=== PATIENT | male | born 1955 ===

== ENCOUNTER 2017-12-07 06:22 | Emergency (ER) | payer OTHER ==
[2017-12-07 06:57] VITALS: BP 165/91; PULSE 68; RESP 16; TEMP 97.4; O2SAT 98
--- NOTE | 2017-12-07 07:51 | ED PDOC ---
HPI: General Adult Time Seen by Provider: 12/07/17 07:08 Chief Complaint (Nursing): ENT Problem Chief Complaint (Provider): Nose bleed History Per: Patient History/Exam Limitations: no limitations Onset/Duration Of Symptoms: Days (x3) Current Symptoms Are (Timing): Intermittent Episodes Additional Complaint(s): 62 year old male with no past medical history, presents to the emergency department complaining of nose bleed, intermittent for 3 days. Patient is usually able to hold pressure and stop blood flow. Upon arrival to ER, there is no active bleeding. Denies taking any blood thinners or other daily medications PMD: Dr. Arthur Paez Past Medical History Reviewed: Historical Data, Nursing Documentation, Vital Signs Vital Signs: Last Vital Signs Temp 97.4 F L 12/07/17 06:54 Pulse 68 12/07/17 06:54 Resp 16 12/07/17 06:54 BP 165/91 H 12/07/17 06:54 Pulse Ox 98 12/07/17 06:54 - Medical History PMH: No Chronic Diseases Denies: Chronic Kidney Disease - Surgical History Surgical History: No Surg Hx - Family History Family History: States: Unknown Family Hx - Social History Current smoker - smoking cessation education provided: No Alcohol: Social Drugs: Denies - Allergies Allergies/Adverse Reactions: Allergies Allergy/AdvReac Type Severity Reaction Status Date / Time No Known Allergies Allergy Verified 12/07/17 06:57 Review of Systems ROS Statement: Except As Marked, All Systems Reviewed And Found Negative Constitutional: Negative for: Fever ENT: Positive for: Other (nose bleed) Cardiovascular: Negative for: Light Headedness Neurological: Negative for: Dizziness Physical Exam - Reviewed Nursing Documentation Reviewed: Yes Vital Signs Reviewed: Yes - Physical Exam Appears: Positive for: Non-toxic, No Acute Distress Head Exam: Positive for: ATRAUMATIC, NORMAL INSPECTION, NORMOCEPHALIC Skin: Positive for: Normal Color, Warm, Dry Eye Exam: Positive for: EOMI, Normal appearance, PERRL ENT: Positive for: TM Is/Are (normal), Other (Minimal irritation to the right nasal septum, no active bleeding. No septal hematoma). Negative for: Pharyngeal Erythema Neck: Positive for: Normal, Painless ROM, Supple Cardiovascular/Chest: Positive for: Regular Rate, Rhythm. Negative for: Murmur Respiratory: Positive for: Normal Breath Sounds. Negative for: Accessory Muscle Use, Respiratory Distress Neurologic/Psych: Positive for: Alert, Oriented - ECG O2 Sat by Pulse Oximetry: 98 (RA) Pulse Ox Interpretation: Normal Medical Decision Making Medical Decision Making: Clinical Impression: Nose Bleed Plan: Patient is stable for discharge home. Advised to follow up with PMD for further evaluation. There is agreement to discharge plan. Return if symptoms persist or worsen. Scribe Attestation: Documented by Rea Fu, acting as a scribe for Deepa Fay MD Provider Scribe Attestation: All medical record entries made by the Scribe were at my direction and personally dictated by me. I have reviewed the chart and agree that the record accurately reflects my personal performance of the history, physical exam, medical decision making, and the department course for this patient. I have also personally directed, reviewed, and agree with the discharge instructions and disposition Disposition - Clinical Impression Clinical Impression: Epistaxis - Patient ED Disposition Is Patient to be Admitted: No Counseled Patient/Family Regarding: Diagnosis, Need For Followup - Disposition Disposition: Routine/Home Disposition Time: 07:25 Condition: STABLE Additional Instructions: FOLLOW-UP WITH PMD WITHIN 2 DAYS FOR REEVALUATION. Instructions: Nosebleed (ED) Forms: [employer] ([place]awk) Print Language: PERSIAN - POA Present On Arrival: None
== END 2017-12-07 07:45 | disposition home or self-care (01) ==
LOC: H.ER 06:22
DX: R04.0 Epistaxis (principal)